=== PATIENT | female | born 1995 | race Asian ===

== ENCOUNTER 2019-08-28 09:20 | Emergency (ER) | payer OTHER ==
[~2019-08-28] VITALS: Ht 167.6 cm; Wt 72.6 kg
[2019-08-28 09:27] VITALS: TEMP 97.9
[2019-08-28] MEDS ORDERED: PRENATA3 PO (09:35)
[2019-08-28 10:30] VITALS: BP 112/75
== END 2019-08-28 10:35 | disposition short-term general hospital (02) ==
LOC: ED 09:20
DX: O42.013 Preterm premature rupture of membranes, onset of labor within 24 hours of rupture, third trimester (principal); Z3A.38 38 weeks gestation of pregnancy
CPT/HCPCS: 96360; 99284